=== PATIENT | female | born 1935 | race Caucasian/White ===

== ENCOUNTER → 2017-04-17 | Outpatient (CLI) | payer MEDICARE, OTHER ==
--- NOTE | 2017-04-20 10:44 | MM ---
Reason for exam: screening (asymptomatic). Last mammogram was performed 1 year and 6 months ago. History: Patient is postmenopausal. Family history of breast cancer in maternal grandmother, breast cancer in paternal grandmother at age 46, and breast cancer in daughter at age 46. Physical Findings: A clinical breast exam by your physician is recommended on an annual basis and results should be correlated with mammographic findings. MG 3D Screening Mammo W/Cad Bilateral CC and MLO view(s) were taken. Prior study comparison: October 24, 2015, bilateral MG screening mammo w CAD. October 13, 2014, bilateral MG screening mammo w CAD. The breast tissue is heterogeneously dense. This may lower the sensitivity of mammography. Finding: There are typically benign vascular, dystrophic calcifications in the right breast. There is no discrete abnormality. ASSESSMENT: Benign, BI-RAD 2 RECOMMENDATION: Routine screening mammogram of both breasts in 1 year.
== END | disposition home or self-care (01) ==
LOC: RADMAMWWP 12:43
PROVIDERS: ATTEND Family Medicine
DX: Z12.31 Encounter for screening mammogram for malignant neoplasm of breast (principal)
CPT/HCPCS: 77063; 77067

== ENCOUNTER → 2018-05-11 | Outpatient (CLI) | payer MEDICARE ==
--- NOTE | 2018-05-13 10:07 | MM ---
Reason for exam: screening (asymptomatic). Last mammogram was performed 1 year and 1 month ago. History: Patient is postmenopausal. Family history of breast cancer in maternal grandmother, breast cancer in paternal grandmother at age 46, and breast cancer in daughter at age 46. Physical Findings: A clinical breast exam by your physician is recommended on an annual basis and results should be correlated with mammographic findings. MG Screening Mammo w CAD Bilateral CC and MLO view(s) were taken. Prior study comparison: April 17, 2017, bilateral MG 3d screening mammo w/cad. October 24, 2015, bilateral MG screening mammo w CAD. The breast tissue is heterogeneously dense. This may lower the sensitivity of mammography. No significant changes when compared with prior studies. ASSESSMENT: Negative, BI-RAD 1 RECOMMENDATION: Routine screening mammogram of both breasts in 1 year.
== END ==
LOC: RADMAMWWP 14:14
PROVIDERS: ATTEND Family Medicine
DX: Z12.31 Encounter for screening mammogram for malignant neoplasm of breast (principal)
CPT/HCPCS: 77067

== ENCOUNTER → 2019-01-19 | Outpatient (CLI) | payer MEDICARE ==
--- NOTE | 2019-01-20 08:06 | BD ---
EXAMINATION TYPE: Axial Bone Density DATE OF EXAM: 01/19/2019 COMPARISON: 2016 CLINICAL HISTORY: M [age] Height: 5 FT 1 IN Weight: 151 FRAX RISK QUESTIONS: Alcohol (3 or more units per day): NO Family History (Parent hip fracture): NO Glucocorticoids (More than 3mos): NO (Ex: prednisone, prednisolone, methylprednisolone, dexamethasone, and hydrocortisone). History of Fracture in Adulthood: YES Secondary Osteoporosis: 1. Type 1 Diabetes: NO 2. Hyperthyroidism: NO 3. Menopause before 45: NO 4. Malnutrition: NO 5. Chronic liver disease: NO Rheumatoid Arthritis: NO Current Tobacco Use: NO RISK FACTORS HISTORY OF: Active: YES Postmenopausal woman: AGE 52 Lost more than 2 inches in height since high school: YES MEDICATIONS: Thyroid Medications: YES Which medication: SYNTHROID How Long: APPROX 20 YEARS Additional Medications: GENUMET, SYNTHROID, STATIN, Additional History: EXAM MEASUREMENTS: Bone mineral densitometry was performed using the [employer] System. Bone mineral density as measured about the Lumbar spine is: ----- L1-L4(G/cm2): 0.897 T Score Values are as follows: ----- L2: -2.8 ----- L3: -2.3 ----- L4: -1.6 ----- L1-L4: -2.4 Bone mineral density has: INCREASED 2.9 % since study of: 2016 Bone mineral density about the R hip (g/cm2): 0.607 Bone mineral density about the L hip (g/cm2): 0.613 T Score values are as follows: -----R Neck: -3.1 -----L Neck: -3.1 -----R Total: -2.8 -----L Total: -2.7 Bone mineral density has: DECREASED -3.4 % since study of: 2016 IMPRESSION: Osteoporosis (T Score less than -2.5). There is increased fracture risk and therapy is usually indicated based on age. Re-Screen 1-2 years. NOTE: T-SCORE=SD OF THE YOUNG ADULT MEAN.
== END | disposition home or self-care (01) ==
LOC: RADBDWWP 14:54
PROVIDERS: ATTEND Family Medicine
DX: M81.0 Age-related osteoporosis without current pathological fracture (principal)
CPT/HCPCS: 77080

== ENCOUNTER → 2021-05-14 | Outpatient (CLI) | payer MEDICARE ==
--- NOTE | 2021-05-14 16:05 | BD ---
EXAMINATION TYPE: Axial Bone Density DATE OF EXAM: 05/14/2021 COMPARISON: 01/19/2019 CLINICAL HISTORY: 85 years year old Female. ICD-10 CODE: M810 Height: 61 IN Weight: 141 LBS FRAX RISK QUESTIONS: History of Fracture in Adulthood: RT TIB/FIB AGE 75 RISK FACTORS HISTORY OF: Active: MODERATE Postmenopausal woman: AGE 52 Lost more than 2 inches in height since high school: YES 2 /" MEDICATIONS: Thyroid Medications: YES Which medication: Synthroid How Lon+ YEARS Osteoporosis Medications: YES Which medication: ALENDRONATE SODIUM How Lon YEAR Additional Medications: MULTI VIT, VIT D,ZINC, ALENDRONATE SODIUM, SYNTHROID, CHOLESTEROL MEDS, ASPIR IN, EXAM MEASUREMENTS: Bone mineral densitometry was performed using the [employer] System. Bone mineral density as measured about the Lumbar spine is: ----- L1-L4(G/cm2): 0.940 T Score Values are as follows: ----- L1: -2.6 ----- L2: -2.9 ----- L3: -1.7 ----- L4: -1.2 ----- L1-L4: -2.0 Bone mineral density has: Increased 4.1% since study of: 01/19/2019 Bone mineral density about the R hip (g/cm2): 0.596 Bone mineral density about the L hip (g/cm2): 0.625 T Score values are as follows: -----R Neck: -3.2 -----L Neck: -3.0 -----R Total: -2.8 -----L Total: -2.5 Bone mineral density has: Increased 1.2% since study of: 01/19/2019 FRAX%s: The graph provided illustrates a 35.6 chance for a major osteoporotic fx and a 14.7 chance fo r the hips probability for fx in 10 years time. IMPRESSION: Osteoporosis (T Score less than -2.5). There is increased fracture risk and therapy is usually indicated based on age. Re-Screen 1-2 years. NOTE: T-SCORE=SD OF THE YOUNG ADULT MEAN.
--- NOTE | 2021-05-15 10:16 | MM ---
Reason for exam: screening (asymptomatic). Last mammogram was performed 3 years ago. History: Patient is postmenopausal. Family history of breast cancer in maternal grandmother, breast cancer in paternal grandmother at age 46, and breast cancer in daughter at age 46. Physical Findings: A clinical breast exam by your physician is recommended on an annual basis and results should be correlated with mammographic findings. MG Screening Mammo w CAD Bilateral CC and MLO view(s) were taken. Prior study comparison: May 11, 2018, bilateral MG screening mammo w CAD. April 17, 2017, bilateral MG 3d screening mammo w/cad. The breast tissue is heterogeneously dense. This may lower the sensitivity of mammography. There are benign appearing vascular calcifications bilaterally. There is no discrete abnormality. ASSESSMENT: Benign, BI-RAD 2 RECOMMENDATION: Routine screening mammogram of both breasts in 1 year.
== END | disposition home or self-care (01) ==
LOC: RADBDWWP 12:20
PROVIDERS: ATTEND Family Medicine
DX: Z12.31 Encounter for screening mammogram for malignant neoplasm of breast (principal); M81.0 Age-related osteoporosis without current pathological fracture; Z78.0 Asymptomatic menopausal state; Z80.3 Family history of malignant neoplasm of breast
CPT/HCPCS: 77067; 77080

== ENCOUNTER → 2022-05-19 | Outpatient (CLI) | payer MEDICARE ==
--- NOTE | 2022-05-20 08:36 | MM ---
Reason for Exam: Screening (asymptomatic). Last mammogram was performed 1 year(s) and 1 month(s) ago. Patient History: Menarche at age 14. First Full-Term at age 20. Postmenopausal. Paternal grandmother had breast cancer, age 46. Maternal grandmother had breast cancer. Daughter had breast cancer, age 46. Sister had breast cancer, age 75. Risk Values: Rehana 5 year model risk: 6.6%. NCI Lifetime model risk: 7.4%. Prior Study Comparison: 04/17/2017 Bilateral Screening Mammogram, [facility]. 05/11/2018 Bilateral Screening Mammogram, [facility]. 05/14/2021 Bilateral Screening Mammogram, [facility]. Tissue Density: The breast tissue is heterogeneously dense. This may lower the sensitivity of mammography. Findings: Analyzed By CAD. There is no suspicious group of microcalcifications or new suspicious mass in either breast. Benign vascular calcifications bilaterally. Overall Assessment: Benign, BI-RAD 2 Management: Screening Mammogram of both breasts in 1 year. A clinical breast exam by your physician is recommended on an annual basis and results should be correlated with mammographic findings. Electronically signed and approved by: Flex Wade D.O.
== END | disposition home or self-care (01) ==
LOC: RADMAMWWP 12:45
PROVIDERS: ATTEND Family Medicine
DX: Z12.31 Encounter for screening mammogram for malignant neoplasm of breast (principal); Z78.0 Asymptomatic menopausal state; Z80.3 Family history of malignant neoplasm of breast
CPT/HCPCS: 77063; 77067

== ENCOUNTER → 2023-07-30 | Outpatient (CLI) | payer MEDICARE ==
--- NOTE | 2023-08-05 09:04 | BD ---
EXAMINATION TYPE: Axial Bone Density DATE OF EXAM: 07/30/2023 CLINICAL HISTORY: 87 years old Female. ICD-10 CODE: Z78.0 ASYMPTOMATIC MENOPAUSAL STATE Height: 61 Weight: 135 FRAX RISK QUESTIONS: Family History (Parent hip fracture): no History of Fracture in Adulthood: yes Secondary Osteoporosis: no RISK FACTORS HISTORY OF: Surgery to Spine/Hip(right/left)/Wrist (right/left): no MEDICATIONS: Thyroid Medications: yes Which medication: Synthroid How Lon+ years Osteoporosis Medications: yes Which medication: Boniva How Lon years EXAM MEASUREMENTS: Bone mineral densitometry was performed using the [employer] System. Bone mineral density as measured about the Lumbar spine is: ----- L1-L4(G/cm2): 0.929 T Score Values are as follows: ----- L1: -2.8 ----- L2: -3.0 ----- L3: -2.0 ----- L4: -1.0 ----- L1-L4: -2.1 Z Score Values are as follows: ----- L1: -0.7 ----- L2: -0.9 ----- L3: 0.0 ----- L4: 1.0 ----- L1-L4: 0.0 Bone mineral density has: Decreased -1.2% since study of: 05/14/2021 Bone mineral density about the R hip (g/cm2): 0.621 Bone mineral density about the L hip (g/cm2): 0.638 T Score values are as follows: -----R Neck: -3.2 -----L Neck: -3.3 -----R Total: -3.1 -----L Total: -2.9 Z Score values are as follows: -----R Neck: -0.7 -----L Neck: -0.8 -----R Total: -0.7 -----L Total: -0.5 Bone mineral density has: Decreased -6.0% since study of: 05/14/2021 FRAX%s: The graph provided illustrates a 35.6% chance for a major osteoporotic fx and a 14.6% chance for the hips probability for fx in 10 years time. IMPRESSION: Osteoporosis (T Score less than -2.5). There is increased fracture risk and therapy is usually indicated based on age. Re-Screen 1-2 years. NOTE: T-SCORE=SD OF THE YOUNG ADULT MEAN.
== END | disposition home or self-care (01) ==
LOC: RADBDWWP 14:23
PROVIDERS: ATTEND Family Medicine
DX: M81.0 Age-related osteoporosis without current pathological fracture (principal); M85.88 Other specified disorders of bone density and structure, other site; Z78.0 Asymptomatic menopausal state
CPT/HCPCS: 77080